=== PATIENT | male | born 1935 | race Caucasian/White ===

== ENCOUNTER 2017-08-09 18:53 | Inpatient (IN) ==
[2017-08-09] MEDS ORDERED: 0.9 % Sodium Chloride 1,000 ML IVC ONE (19:19)
--- NOTE | 2017-08-09 19:27 | Emergency Department Note ---
Disposition Clinical Impression: Dehydration UTI (urinary tract infection) Qualifiers: Urinary tract infection type: site unspecified Hematuria presence: with hematuria Qualified Code(s): N39.0 - Urinary tract infection, site not specified ; R31.9 - Hematuria, unspecified; R31.9 - Hematuria, unspecified Disposition: Admitted As Inpatient Condition: Fair Forms: ED Satisfaction Letter Fall HPI - General Chief Complaint: ED Fall Stated Complaint: frequent falls Time Seen by Provider: 08/09/17 19:00 Source: EMS Mode of arrival: EMS Limitations: age Nursing Notes Reviewed: Yes Vital Signs Reviewed: Yes - History of Present Illness HPI Narrative: 81-year-old male is brought in by [email or web address] for evaluation related to frequent falling. History is difficult to obtain since the family member that is present does not live with him. He states that since Sunday i.e. 2 days ago he has been frequently falling and he has been going over to the home to help pick him up. The patient has no complaints of pain related to falls. He states that he gets dizzy and falls. Patient denies any chest pain, shortness of breath, abdominal pain, nausea vomiting, diarrhea,. He does state that he has problems urinating. He denies any dysuria or hematuria. He also denies any fever or chills. He has not been eating well recently. He has been drinking fluids. Patient is known to have an inoperable brain tumor diagnosed 5 years ago - Related Data Home Medications Medication Instructions Recorded Confirmed Lisinopril [Zestril] 10 mg PO DAILY 05/06/15 08/09/17 Metformin [Glucophage] 1,000 mg PO BIDWM 05/06/15 08/09/17 Omeprazole [PriLOSEC] 20 mg PO DAILY 05/06/15 08/09/17 Pravastatin Sodium [Pravachol] 20 mg PO DAILY 05/06/15 08/09/17 [place] Oil/[place]-3 Fatty Acids 1,000 mg PO DAILY 05/06/15 08/09/17 [Fish Oil 500 mg Softgel] Aspirin [Adult Low Dose Aspirin EC] 81 mg PO DAILY 11/21/15 08/09/17 Previous Rx's Medication Instructions Recorded hydroCHLOROthiazide 12.5 mg PO DAILY #30 tablet 11/21/15 [Hydrochlorothiazide] Simethicone [Gas-X] 80 mg PO TID #90 tab.chew 05/27/16 Allergies Allergy/AdvReac Type Severity Reaction Status Date / Time No Known Allergies Allergy Verified 05/06/15 12:13 Review of Systems: Constitutional: [Negative for fever and chills.] HENT: [Negative for congestion.] Eyes: [Negative for discharge.] Respiratory: [Negative for shortness of breath.] Cardiovascular: [Negative for chest pain.] Gastrointestinal: [Negative for nausea, vomiting, abdominal pain and diarrhea.] Endocrine: [Negative for excessive thirst,urination] Genitourinary: [Negative for dysuria and frequency.] Musculoskeletal: [Negative for myalgias and arthralgias.] Skin: [Negative for rash.] Neurological: see The history of present illness Psychiatric/Behavioral: [Negative for nervous/anxious.] All other systems reviewed and are negative. Fall PMH - Past Medical History Medical history: Reports: COPD, diabetes, GERD, hypertension, kidney stones, other Surgical history: Reports: cholecystectomy Psychiatric history: Reports: no psych history - Social History Smoking Status: Never smoker Alcohol use: Reports: none Drug use: Reports: none Physical Exam Constitutional: Patient is [alert], elderly and cooperative. . The patient is slow to respond, [nontoxic, and does not appear ill]. HENT: Head: Normocephalic and atraumatic. Right Ear: External ear normal. Left Ear: External ear normal. Nose: Nose normal. Mouth/Throat: Oropharynx is clear and mucous membranes show mild dehydration Eyes: Conjunctivae and EOM are normal. Pupils are equal, round, and reactive to light. Right eye exhibits [no] discharge. Left eye exhibits [no] discharge. Neck: Trachea is midline, normal range of motion and [phonation normal]. Neck supple. Cardiovascular: [Regular rhythm], S1 normal, S2 normal, normal heart sounds and intact distal pulses. Exam reveals no gallop and no friction rub. No murmur heard. [Capillary refill is brisk.] [Peripheral pulses are 2+] Pulmonary/Chest: Effort [normal] No stridor. [No] tachypnea. [No] respiratory distress. There are [no] decreased breath sounds. [There no wheezes, no rhonchi , or rales.] Abdominal: Soft. [Bowel sounds are normal]. There exhibits [no] distension and [no] mass. There is no hepatosplenomegaly. There is [no tenderness], [no] CVA tenderness. There is [no rigidity, no rebound, no guarding]. Musculoskeletal: Normal range of motion of uninvolved extremities. There exhibits [no edema]. [ ] Neurological: Patient is alert. Patient displays no atrophy and no tremor. No cranial nerve deficit and exhibits normal muscle tone. He has no gross motor deficits Coordination normal grossly. Skin: Skin is warm and dry. No erythema. No rash noted. Psychiatric: Patient has a normal mood and affect. Course Course Narrative: Patient was discussed with Dr. Newell who agrees to accept him for admission Vital Signs Temperature 98.0 F 08/09/17 18:55 Pulse Rate 100 08/09/17 18:55 Respiratory Rate 16 08/09/17 18:55 Blood Pressure 136/87 08/09/17 18:55 O2 Sat by Pulse Oximetry 94 08/09/17 18:55 Temperature 98.0 F 08/09/17 18:55 Pulse Rate 92 08/09/17 19:57 Respiratory Rate 16 08/09/17 19:57 Blood Pressure 155/101 08/09/17 19:57 O2 Sat by Pulse Oximetry 94 08/09/17 19:57 Oxygen Delivery Oxygen Delivery Room Air Fall - MDM Narrative Medical decision making narrative: Sepsis ( THE RESULT OF PNEUMONIA, INFLUENZA, MENINGITIS,SINUSITIS, ENDOCARDITIS,PYELONEPHRITIS, COLITIS, DIVERTICULITIS,OR WOUND INFECTION), ALCOHOL INTOXICATION, ELEVATED AMNONIA, DRUG TOXICITIES, ELECTROLYTE ABNORMALITIES, HYPO OR HYPERGLYCEMIA, OR UREMIA, PULMONARY EMBOLISM, ACUTE CORONARY SYNDROME, THORACIC AORTIC DISSECTION, PNEUMOTHORAX, PNEUMONIA, PLEURAL EFFUSION, , ESOPHAGEAL RUPTURE, PERICARDIAL TAMPONADE, PULMONARY EDEMA. ANEMIA , GASTROINTESTINAL BLEEDING, RENAL FAILURE, LIVER FAILURE, - Lab Data Lab results reviewed: Yes I reviewed the patient's lab results. Result diagrams: 08/09/17 19:31 08/09/17 19:31 Lab Results 08/09/17 08/09/17 08/09/17 Range/Units 19:31 19:31 19:31 WBC 6.1 (4.3-11.1) K/mcL RBC 4.91 (4.19-5.50) M/mcL Hgb 14.2 (12.9-16.9) g/dL Hct 41.1 (37.5-50.1) % MCV 83.7 (83.0-100.0) fL MCH 28.9 (28.0-33.3) pg MCHC 34.5 (31.6-35.5) g/dL RDW 12.9 (11.5-14.5) % Plt Count 162 (140-400) K/mcL MPV 9.9 (9.4-12.4) fL Immature Gran % 0.8 (0-4) % Seg Neutrophils % 75.7 % Lymphocytes % 12.2 % Monocytes % 11.0 % Eosinophils % 0.0 % Basophils % 0.3 % Neutrophils # 4.6 (1.6-8.9) K/mcL Lymphocytes # 0.7 (0.6-4.6) K/mcL Monocytes # 0.7 (0.0-1.3) K/mcL Eosinophils # 0.0 (0.0-0.6) K/mcL Basophils # 0.0 (0.0-0.2) K/mcL Sodium 126 L (136-145) mEq/L Potassium 4.3 (3.5-4.5) mEq/L Chloride 92 L (98-109) mEq/L Carbon Dioxide 21 (19-29) mEq/L BUN 45 H (8-26) mg/dL Creatinine 2.25 H (0.72-1.25) mg/dL Est GFR ( Amer) 34 L (> 60) Est GFR (Non-Af Amer) 28 L (> 60) BUN/Creatinine Ratio 20 (6-26) Glucose 494 H (70-99) mg/dL Calculated Osmolality 296 (280-300) Lactic Acid 3.0 H (0.5-2.2) mmol/L Calcium 9.3 (8.6-10.8) mg/dL Total Bilirubin 0.8 (0.2-1.2) mg/dL AST 44 H (5-34) Units/L ALT 42 (0-55) Units/L Alkaline Phosphatase 117 (38-126) Units/L Serum Total Protein 7.3 (6.0-8.3) g/dL Albumin 3.2 L (3.5-5.0) g/dL Globulin 4.1 H (2.4-3.5) g/dL Albumin/Globulin Ratio 0.8 L (1.1-2.2) Urine Color (Yellow) Urine Clarity (Clear) Urine pH (5.0-8.0) pH Units Ur Specific [place] (1.010-1.025) Urine Protein (Neg-Trace) mg/dL Urine Glucose (UA) (Normal) mg/dL Urine Ketones (Negative) mg/dL Urine Blood (Negative) Urine Nitrite (Negative) Urine Bilirubin (Negative) Urine Urobilinogen (Normal) mg/dL Ur Leukocyte Esterase (Negative) Urine Microscopic RBC (0-3) per hpf Urine Microscopic WBC (0-3) per hpf Urine Bacteria (None-Few) per hpf Hyaline Casts (None-Few) per lpf Granular Casts (None Seen) per lpf Ur Culture Indicated? (NO) 08/09/17 Range/Units 19:31 WBC (4.3-11.1) K/mcL RBC (4.19-5.50) M/mcL Hgb (12.9-16.9) g/dL Hct (37.5-50.1) % MCV (83.0-100.0) fL MCH (28.0-33.3) pg MCHC (31.6-35.5) g/dL RDW (11.5-14.5) % Plt Count (140-400) K/mcL MPV (9.4-12.4) fL Immature Gran % (0-4) % Seg Neutrophils % % Lymphocytes % % Monocytes % % Eosinophils % % Basophils % % Neutrophils # (1.6-8.9) K/mcL Lymphocytes # (0.6-4.6) K/mcL Monocytes # (0.0-1.3) K/mcL Eosinophils # (0.0-0.6) K/mcL Basophils # (0.0-0.2) K/mcL Sodium (136-145) mEq/L Potassium (3.5-4.5) mEq/L Chloride (98-109) mEq/L Carbon Dioxide (19-29) mEq/L BUN (8-26) mg/dL Creatinine (0.72-1.25) mg/dL Est GFR ( Amer) (> 60) Est GFR (Non-Af Amer) (> 60) BUN/Creatinine Ratio (6-26) Glucose (70-99) mg/dL Calculated Osmolality (280-300) Lactic Acid (0.5-2.2) mmol/L Calcium (8.6-10.8) mg/dL Total Bilirubin (0.2-1.2) mg/dL AST (5-34) Units/L ALT (0-55) Units/L Alkaline Phosphatase (38-126) Units/L Serum Total Protein (6.0-8.3) g/dL Albumin (3.5-5.0) g/dL Globulin (2.4-3.5) g/dL Albumin/Globulin Ratio (1.1-2.2) Urine Color Yellow (Yellow) Urine Clarity Cloudy A (Clear) Urine pH 5.5 (5.0-8.0) pH Units Ur Specific [place] 1.020 (1.010-1.025) Urine Protein 100 H (Neg-Trace) mg/dL Urine Glucose (UA) 500 H (Normal) mg/dL Urine Ketones Negative (Negative) mg/dL Urine Blood Moderate H (Negative) Urine Nitrite Negative (Negative) Urine Bilirubin Negative (Negative) Urine Urobilinogen Normal (Normal) mg/dL Ur Leukocyte Esterase Large H (Negative) Urine Microscopic RBC 5-15 H (0-3) per hpf Urine Microscopic WBC TNTC H (0-3) per hpf Urine Bacteria Many H (None-Few) per hpf Hyaline Casts Few (None-Few) per lpf Granular Casts Few H (None Seen) per lpf Ur Culture Indicated? YES A (NO) - Radiology Data Radiology results reviewed: Yes I reviewed the patient's radiology results. 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 The cystic component appears slightly increased in size. The solid component appears basically unchanged. Otherwise unremarkable CT head for the patient's age.
[2017-08-09 19:37] LABS: Basophils % 0.3 %; Hematocrit 41.1 % (37.5-50.1); Hemoglobin 14.2 g/dL (12.9-16.9); Immature Granulocytes % 0.8 % (0-4); Lymphocytes # 0.7 K/mcL (0.6-4.6); Lymphocytes % 12.2 %; Mean Corpuscular HGB Conc 34.5 g/dL (31.6-35.5); Mean Corpuscular Hemoglobin 28.9 pg (28.0-33.3); Mean Corpuscular Volume 83.7 fL (83.0-100.0); Mean Platelet Volume 9.9 fL (9.4-12.4); Monocytes # 0.7 K/mcL (0.0-1.3); Neutrophils # 4.6 K/mcL (1.6-8.9); Platelet Count 162 K/mcL (140-400); Red Blood Count 4.91 M/mcL (4.19-5.50); Red Cell Distribution Width 12.9 % (11.5-14.5); Segmented Neutrophils % 75.7 %
[2017-08-09 19:39] LABS: Bilirubin,Urine Negative (Negative); Blood,Urine Moderate (Negative); Clarity,Urine Cloudy (Clear); Color,Urine Yellow (Yellow); Glucose,Urine (UA) 500 mg/dL (Normal); Ketones,Urine Negative (Negative); Leukocyte Esterase,Urine Large (Negative); Nitrite,Urine Negative (Negative); PH,Urine 5.5 pH Units (5.0-8.0); Protein,Urine 100 mg/dL (Neg-Trace); Urobilinogen,Urine Normal (Normal)
[2017-08-09 19:48] LABS: Bacteria,Urine Many per hpf (None-Few); Granular Casts,Urine Few per lpf (None Seen); Hyaline Casts,Urine Few per lpf (None-Few); WBC,Urine TNTC per hpf (0-3)
[2017-08-09 20:30] LABS: Albumin 3.2 g/dL (3.5-5.0); Albumin/Globulin Ratio 0.8 (1.1-2.2); Bilirubin,Total 0.8 mg/dL (0.2-1.2); Calcium 9.3 mg/dL (8.6-10.8); Globulin 4.1 g/dL (2.4-3.5); Potassium 4.3 mEq/L (3.5-4.5); Total Protein 7.3 g/dL (6.0-8.3)
[2017-08-09] MEDS ORDERED: Ondansetron 4 MG/2 ML VIAL IVP PRN (21:17)
[2017-08-09] MEDS ORDERED: Naloxone 0.4 MG/ML INJ IVP PRN (21:17)
[2017-08-09] MEDS ORDERED: Acetaminophen 325 MG TABLET PO PRN (21:17)
[2017-08-09] MEDS: Piperacillin/Tazobactam 3.375 GM in 0.9 % Sodium Chloride Mini Bag 100 ML IVPB SCH (22:37)
[2017-08-09] MEDS: 0.9 % Sodium Chloride 1,000 ML IVC SCH (23:30)
[2017-08-09] MEDS ORDERED: *HR* Dextrose 50 % in Water (Syg) 50 ML SYRINGE IVP PRN (23:58)
[2017-08-09] MEDS ORDERED: Dextrose Gel 15 GM PO PRN ×2 (23:58)
[2017-08-09] MEDS ORDERED: D5% in Water 1,000 ML IVC PRN (23:58)
[2017-08-10] MEDS ORDERED: Piperacillin/Tazobactam 3.375 GM in 0.9 % Sodium Chloride Mini Bag 100 ML IVPB SCH
[2017-08-10] MEDS ORDERED: Piperacillin/Tazobactam 3.375 GM/200 ML BAG IVPB SCH
[2017-08-10] MEDS: 0.9 % Sodium Chloride 1,000 ML IVC SCH ×2 (05:40→22:42)
[2017-08-10] MEDS: Piperacillin/Tazobactam 3.375 GM in 0.9 % Sodium Chloride Mini Bag 100 ML IVPB SCH ×3 (06:35→22:44)
--- NOTE | 2017-08-10 06:59 | Internal Med History&Physical ---
Date of Encounter: 08/10/17 Time of Encounter: 06:40 Assessment and Plan (1) UTI (urinary tract infection) Current visit: Yes Status: Acute History of recurring falling episodes and generalized weakness and has a urine consistent with UTI. He could have urosepsis. Blood has been cultured in the ER. He has been started on antibiotics. IV fluids because of poor intake. Repeat lactate is pending. He does not have hypotension or fever or leukocytosis. Qualifiers: Urinary tract infection type: site unspecified Hematuria presence: with hematuria Qualified Code(s): N39.0 - Urinary tract infection, site not specified; R31.9 - Hematuria, unspecified; R31.9 - Hematuria, unspecified (2) Acute kidney injury Current visit: Yes Status: Acute Patient is noted to have acute kidney injury with creatinine 2.28. I suspect this is from some mild dehydration. We will hold his metformin. We will recheck his lactic acid. He has IV fluids going as I suspect this is prerenal. Follow-up creatinine is pending. (3) Dementia Current visit: Yes Status: Chronic He has a chronic history of dementia and MMSE in the chart of . I am not sure exactly what his baseline is. His states that he does not follow commands very well at home. They have to do most of his ADLs and assist with dressing etc. He does not walk well. Qualifiers: Qualified Code(s): F03.90 - Unspecified dementia without behavioral disturbance (4) Generalized weakness Current visit: No Status: Acute He states he is generally weak and falling episodes. Complains of left lower extremity weakness but cannot get him to follow commands to even stand to check his function. I will have PT and OT evaluate him as well. (5) Vestibular schwannoma Current visit: Yes Status: Chronic History of right vestibular schwannoma. No major change overall this seems significant radiographically. (6) Diabetes Current visit: Yes Status: Chronic He has a history of diabetes. His medication list from the office though lists no diabetic medication. His last glycohemoglobin was in the 6% range. Due to his acute kidney injury where going to hold his metformin that was prescribed via the ER. We will use sliding scale for now. Follow-up glycohemoglobin has been ordered. He may indeed not need to be on any medication at this point. Qualifiers: Diabetes mellitus type: type 2 Diabetes mellitus complication status: with unspecified complications Diabetes mellitus senior living insulin use: without senior living use Qualified Code(s): E11.8 - Type 2 diabetes mellitus with unspecified complications (7) HTN (hypertension) Current visit: No Status: Chronic Long-standing history of blood pressure has been good currently. He takes a small amount of hydrochlorothiazide. We will need to watch the hyponatremia though and the acute renal failure. This may need to be changed. Will follow. Qualifiers: Hypertension type: essential hypertension Qualified Code(s): I10 - Essential (primary) hypertension (8) DVT prophylaxis Current visit: Yes Status: Acute Lovenox was initiated from the ER. We will continue as he is not easily ambulatory. Internal Medicine - H&P: HPI Chief complaint: I am here because I cannot walk Admitted From: Emergency Dept Plans for Post Hospital Care: Home History of present illness: Mr. Ramos is a 81 year old male with known history of diabetes, hypertension , carotid stenosis, right vestibular schwannoma and dementia was admitted via the emergency room with a history of repeated falling episodes and weakness. Patient is not a good historian for this and no family available currently. According to the ER physician, patient was brought in via life squad for evaluation of recurring falling episodes. It started occurring over the past 2 days. No related symptoms otherwise. Patient states he usually uses a walker at home and he also states his "left leg is not working well" for the past 3 days. Also states that he is "pooping a lot due to my medications". No matter when I asked when things started to occur, he only said "on Sunday". He also states he is not eating as much since Sunday. In the emergency room he was found to have acute kidney injury with creatinine of 2.25, hyponatremia with sodium of 126, urinalysis consistent with acute urinary tract infection, and redemonstration of his right vestibular schwannoma in which the cystic component appears to be slightly increased, the solid component appears basically unchanged and it does create a mass effect upon the right aspect of the cerebellum. Currently patient denies any chest pain, palpitation, dyspnea, abdominal pain or urinary symptoms. He did state that he is having frequent loose stools. He states he has had pain in his back and his chest from the falling episodes but he is vague about this. Later I was able to obtain more formation via phone from the . She states that he has been going downhill. It is difficult for her to manage him. He does not follow commands very well at all. He is getting to the point where it is too much for her to safely handle at home. He had been in [facility] in the past, but they cannot afford to keep him there. 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 Patient no longer drives. I believe he is taking care of by his and stepson. He states he walks with his walker and cane. (Poor historian and I am not sure of the details) - Family History Mother History Unknown: Yes Living Status: Hx Family Neurologic Disorders: Yes (History of a stroke) Father History Unknown: Yes Living Status: Age at : 63 Internal Medicine - H&P: Meds Pravastatin Sodium [Pravachol] 20 mg PO DAILY 05/06/15 [History] [place] Oil/[place]-3 Fatty Acids [Fish Oil 500 mg Softgel] 1,000 mg PO DAILY 05/06 [History] Aspirin [Adult Low Dose Aspirin EC] 81 mg PO DAILY 11/21/15 [History] hydroCHLOROthiazide [Hydrochlorothiazide] 12.5 mg PO DAILY #30 tablet 11/21/15 [ Rx] Citalopram Hydrobromide [Citalopram HBr] 10 mg PO DAILY 08/10/17 [History] Memantine [Namenda] 5 mg PO DAILY 08/10/17 [History] 3 Allergy/AdvReac Type Severity Reaction Status Date / Time No Known Allergies Allergy Verified 05/06/15 12:13 - Constitutional Constitutional: anorexia (As in history of present illness), falls (As in history of present illness), weakness, no night sweats - EENT Eyes: no diplopia, no loss of vision, no other visual disturbances Ears: no ear discharge, no ear pain Nose, mouth and throat: no neck pain, no sore throat - Cardiovascular Cardiovascular ROS IM: no chest pain, no dyspnea, no dyspnea on exertion, no irregular heart rhythm, no lightheadedness - Respiratory Respiratory: no dyspnea, no dyspnea on exertion, no chest congestion, no pain with cough - Gastrointestinal Gastrointestinal: change in bowel habits (More frequent bowel movements recently ), diarrhea (More frequent bowel movements recently but is not more specific than that), loose stools, no constipation, no hematemesis, no hematochezia, no melena - Genitourinary Genitourinary ROS male: no dysuria, no flank pain, no urinary frequency, no urinary hesitancy, no urinary incontinence - Musculoskeletal Musculoskeletal ROS IM: back pain (Vague history of back pain after his falling episodes), muscle weakness (He states his left leg does not work as well as it should) - Integumentary Integumentary IM: no rash - Neurological Neurological ROS: weakness (He states he is weak, has had recurring falls and left lower extremity does not work as well), no loss of vision - Psychiatric Psychiatric: memory loss (According to his records he does have dementia and fails MMSE) - Constitutional Vitals: Temp Pulse Resp BP Pulse Ox 97.9 F 86 19 148/84 95 08/10/17 04:00 08/10/17 04:00 08/10/17 04:00 08/10/17 04:00 08/10/17 04:00 General appearance: Present: A&O X 2, no acute distress. Absent: answers questions appropriately - Eye Eye exam: Present: PERRL Pupils: Present: PERRL - ENT ENT exam: Present: mucous membranes moist, TM's normal bilaterally. Absent: normal oropharynx (He has a full set of dentures. No oral lesions) - Neck Neck exam general surgery: Absent: lymphadenopathy, tenderness, nuchal rigidity , thyromegaly Additional comments: Faint right carotid bruit - Respiratory Respiratory exam: Present: CTAB. Absent: respiratory distress - Cardiovascular Cardiovascular exam: Present: RRR, +S1, +S2. Absent: systolic murmur - GI/Abdominal GI/Abdominal exam: Present: soft, no peritoneal signs. Absent: guarding, mass, tenderness - Extremities Exam Extremities exam: Present: normal capillary refill. Absent: calf tenderness, pedal edema, tenderness Additional comments: Good dorsalis pedis pulses bilaterally. Both shins have healing abrasions without secondary infection - Back Exam Back exam: Absent: CVA tenderness (L), CVA tenderness (R), tenderness, vertebral tenderness - Neurological Exam Neurological exam: Present: alert, CN II-XII intact (But he is slow to follow commands particularly looking to his left or right following my finger but he is able to do it. He thought it was Sunday not Sunday, he thought it was September not July, he knew it was winter. He knew was coming. He knew his birthday.), strengths equal and symetr throughout (As tested in bed. However he could not follow commands well enough to sit at the edge of the bed. He was slow to follow commands regarding left and right sidedness). Absent: altered, facial droop, speech deficit - Skin Additional comments: He has healing abrasions on both shins that measure about a centimeter in diameter. No secondary infection. Internal Med - H&P Results - Labs CBC & Chem 7: 08/10/17 07:09 08/10/17 07:09 Labs: Labs have been reviewed showing hyponatremia, acute kidney injury and abnormal urinalysis. Urine culture has been set up.
[2017-08-10] MEDS ORDERED: *HR* Enoxaparin 40 MG/0.4 ML SYRINGE SQ SCH (07:00)
[2017-08-10 07:25] LABS: Calcium 8.7 mg/dL (8.6-10.8); Potassium 3.5 mEq/L (3.5-4.5)
[2017-08-10 07:32] LABS: Basophils % 0.3 %; Hematocrit 39.6 % (37.5-50.1); Hemoglobin 13.7 g/dL (12.9-16.9); Immature Granulocytes % 0.6 % (0-4); Lymphocytes # 0.9 K/mcL (0.6-4.6); Lymphocytes % 14.1 %; Mean Corpuscular HGB Conc 34.6 g/dL (31.6-35.5); Mean Corpuscular Volume 83.9 fL (83.0-100.0); Mean Platelet Volume 9.8 fL (9.4-12.4); Monocytes # 0.7 K/mcL (0.0-1.3); Monocytes % 11.7 %; Neutrophils # 4.6 K/mcL (1.6-8.9); Platelet Count 162 K/mcL (140-400); Red Blood Count 4.72 M/mcL (4.19-5.50); Segmented Neutrophils % 73.3 %
[2017-08-10] MEDS ORDERED: *HR* Metformin 500 MG TABLET PO SCH (08:00)
[2017-08-10] MEDS: Aspirin Enteric Coated 81 MG Tablet PO SCH (08:57)
[2017-08-10] MEDS: Simethicone 80 MG TAB.CHEW PO SCH ×2 (08:57→15:11)
[2017-08-10] MEDS: Insulin LISPRO 300 UNITS/3 ML VIAL SQ SCH ×4 (08:58→21:51)
[2017-08-10] MEDS: (Fish Oil 500 Mg Soft) PO SCH (09:04)
--- NOTE | 2017-08-10 19:56 | Event Note ---
Date of Encounter: 08/10/17 Time of Encounter: 19:47 I spoke with the patient's earlier today via phone and she said that he has been getting worse and hard to take care of at home. He does not follow commands and has been falling frequently. I spoke with the stepson and he agrees. When he saw the patient tonight he knew that this was "not like him", he is usually more talkative and he was very quiet and neglectful. Patient's left eyelid does droop a bit. He seems to be ignoring one side and then the other inconsistently. He does not follow commands very well. He may have had a small stroke not seen on CT scan. His change in mentation may be from sepsis, hyponatremia or worsening dementia. Time will tell. I do not think it will change management director at this point.
[2017-08-11 05:31] LABS: Basophils % 0.3 %; Eosinophils % 0.2 %; Hematocrit 33.9 % (37.5-50.1); Immature Granulocytes % 0.7 % (0-4); Lymphocytes # 1.1 K/mcL (0.6-4.6); Lymphocytes % 19.3 %; Mean Corpuscular HGB Conc 34.2 g/dL (31.6-35.5); Mean Corpuscular Hemoglobin 28.8 pg (28.0-33.3); Mean Corpuscular Volume 84.1 fL (83.0-100.0); Mean Platelet Volume 9.8 fL (9.4-12.4); Monocytes # 0.7 K/mcL (0.0-1.3); Monocytes % 12.5 %; Platelet Count 122 K/mcL (140-400); Red Blood Count 4.03 M/mcL (4.19-5.50); Red Cell Distribution Width 13.2 % (11.5-14.5)
[2017-08-11 05:41] LABS: Hemoglobin 11.6 g/dL (12.9-16.9)
[2017-08-11 05:52] LABS: Calcium 7.8 mg/dL (8.6-10.8)
[2017-08-11] MEDS: Piperacillin/Tazobactam 3.375 GM in 0.9 % Sodium Chloride Mini Bag 100 ML IVPB SCH ×2 (06:16→15:29)
[2017-08-11] MEDS: *HR* Enoxaparin 30 MG/0.3 ML SYRINGE SQ SCH (06:19)
[2017-08-11] MEDS: 0.9 % Sodium Chloride 1,000 ML IVC SCH ×3 (06:59→21:58)
[2017-08-11] MEDS: hydroCHLOROthiazide 25 MG TABLET PO SCH (08:19)
[2017-08-11] MEDS: Aspirin Enteric Coated 81 MG Tablet PO SCH (08:20)
[2017-08-11] MEDS: Insulin LISPRO 300 UNITS/3 ML VIAL SQ SCH ×3 (08:21→17:33)
[2017-08-11] MEDS: (Fish Oil 500 Mg Soft) PO SCH (08:24)
--- NOTE | 2017-08-11 09:07 | Internal Med Progress Note ---
Date of Encounter: 08/11/17 Time of Encounter: 09:00 - Assessment and plan (1) Generalized weakness Current Visit: No Status: Acute Assessment and plan: Pursuing OT and PT evals. Considering return to [facility] for longer term therapy. No focal findings. Fall risk. (2) Diabetes Current Visit: Yes Status: Chronic Assessment and plan: A1c from today is pending. Hyperglycemia noted. Would avoid metformin. Qualifiers: Diabetes mellitus type: type 2 Diabetes mellitus complication status: with unspecified complications Diabetes mellitus long lines operator insulin use: without chcf use Qualified Code(s): E11.8 - Type 2 diabetes mellitus with unspecified complications (3) HTN (hypertension) Current Visit: No Status: Chronic Assessment and plan: At goal. BPs a little low, should improve with hydration and treatment of infection. Qualifiers: Hypertension type: essential hypertension Qualified Code(s): I10 - Essential (primary) hypertension (4) COPD (chronic obstructive pulmonary disease) Current Visit: No Status: Chronic Assessment and plan: No current sx or significant exam findings. 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 Culture results are still pending. Qualifiers: Urinary tract infection type: site unspecified Hematuria presence: with hematuria Qualified Code(s): N39.0 - Urinary tract infection, site not specified; R31.9 - Hematuria, unspecified; R31.9 - Hematuria, unspecified (6) Acute kidney injury Current Visit: Yes Status: Acute Assessment and plan: Creatinine stable at 1.89 from 1.86. (7) Dementia Current Visit: Yes Status: Chronic Assessment and plan: I have not seen him beofre, but he seems better to me. Sodium improved from 127 to 131. Qualifiers: Qualified Code(s): F03.90 - Unspecified dementia without behavioral disturbance (8) Hypokalemia Current Visit: Yes Status: Acute Assessment and plan: 3.0 from 3.5. Will replace. (9) Hyponatremia Current Visit: Yes Status: Acute - Time Spent With Patient Greater than 35 minutes - Subjective Interval history: Patient has no complaints. Denies SOB, chest pain. He reports occ mild hypogastric discomfort. - Constitutional Vitals: Afebrile. BP 93/52-106/53. O2 sat 92-98% on RA. Temp Pulse Resp BP Pulse Ox 98.6 F 66 14 99/61 98 08/11/17 07:21 08/11/17 07:21 08/11/17 07:21 08/11/17 07:21 08/11/17 07:21 General appearance: Present: cooperative, A&O X 3 (Oriented to person and place , gives day as "Elvira Mari[place]". ), pleasant, no acute distress. Absent: answers questions appropriately (He tells me that Dr. Newell is out fishing. ) - Respiratory Respiratory exam: Present: rales (mild but definite rales at bases bilaterally) . Absent: accessory muscle use, rhonchi, wheezes - Cardiovascular Cardiovascular exam: Present: RRR, +S1, +S2. Absent: diastolic murmur, gallop, rubs, systolic murmur - GI/Abdominal GI/Abdominal exam: Present: normal bowel sounds, soft, no peritoneal signs. Absent: distended, tenderness - Extremities Exam Extremities exam: Present: warm. Absent: calf tenderness, cyanotic, pedal edema - Other Additional findings: Moves all extremities, no facial asymmetry. Internal Medicine: Result - Labs CBC & Chem 7: 08/11/17 05:00 08/11/17 05:00 Labs: Short CBC 08/11/17 Range/Units 05:00 WBC 5.9 (4.3-11.1) K/mcL Hgb 11.6 L D (12.9-16.9) g/dL Hct 33.9 L (37.5-50.1) % Plt Count 122 L (140-400) K/mcL Neutrophils # 4.0 (1.6-8.9) K/mcL BMP 08/11/17 05:00 Sodium 131 L Potassium 3.0 L Chloride 101 Carbon Dioxide 20 BUN 40 H Creatinine 1.89 H Glucose 165 H Calcium 7.8 L Consult Discharge Plan - Plan Referrals: Lotus Cordero, MANAGER [employer]PORATE [employer]ATEGY [Primary Care Provider] -
[2017-08-11 18:27] LABS: Estimated Average Glucose > 355 mg/dl; Hemoglobin A1C >= 14.1 %
[2017-08-12] MEDS: Insulin LISPRO 300 UNITS/3 ML VIAL SQ SCH ×5 (00:09→20:32)
[2017-08-12] MEDS: Piperacillin/Tazobactam 3.375 GM in 0.9 % Sodium Chloride Mini Bag 100 ML IVPB SCH ×3 (04:32→20:25)
[2017-08-12] MEDS: *HR* Enoxaparin 30 MG/0.3 ML SYRINGE SQ SCH (05:40)
[2017-08-12] MEDS: Aspirin Enteric Coated 81 MG Tablet PO SCH (08:50)
[2017-08-12] MEDS: hydroCHLOROthiazide 25 MG TABLET PO SCH (08:50)
[2017-08-12] MEDS: (Fish Oil 500 Mg Soft) PO SCH (12:43)
--- NOTE | 2017-08-12 16:55 | Internal Med Progress Note ---
Date of Encounter: 08/12/17 Time of Encounter: 07:30 - Assessment and plan (1) Generalized weakness Current Visit: No Status: Acute Assessment and plan: His stepson and agreed that these doing better overall. Continue with therapy as tolerated. (2) Diabetes Current Visit: Yes Status: Chronic Assessment and plan: [id number]-[id number] glucose is 208. A1c is greater than 14. We should avoid metformin because of his chronic kidney disease. He has no known allergies. I will start him on low dose glipizide. Qualifiers: Diabetes mellitus type: type 2 Diabetes mellitus complication status: with unspecified complications Diabetes mellitus superintendent marine oil terminal insulin use: without superintendent marine oil terminal use Qualified Code(s): E11.8 - Type 2 diabetes mellitus with unspecified complications (3) HTN (hypertension) Current Visit: No Status: Chronic Assessment and plan: at goal BP. Qualifiers: Hypertension type: essential hypertension Qualified Code(s): I10 - Essential (primary) hypertension (4) COPD (chronic obstructive pulmonary disease) Current Visit: No Status: Chronic Assessment and plan: Symptoms and exam are stable. 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 Elevated lactate suggested sepsis, continue Zosyn for now. Qualifiers: Urinary tract infection type: site unspecified Hematuria presence: with hematuria Qualified Code(s): N39.0 - Urinary tract infection, site not specified; R31.9 - Hematuria, unspecified; R31.9 - Hematuria, unspecified (6) Acute kidney injury Current Visit: Yes Status: Acute Assessment and plan: Will check AM labs. He has maintained a good urine output and is eating well. (7) Dementia Current Visit: Yes Status: Chronic Assessment and plan: His mentation is getting close to baseline per family. Qualifiers: Qualified Code(s): F03.90 - Unspecified dementia without behavioral disturbance (8) Hypokalemia Current Visit: Yes Status: Acute Assessment and plan: We will recheck his labs. (9) Hyponatremia Current Visit: Yes Status: Acute Assessment and plan: Improved. We will recheck his labs. - Time Spent With Patient Greater than 35 minutes - Subjective Interval history: The patient has no specific complaints. He denies shortness of breath, chest pain or abdominal pain. His nurse says that his diarrhea is much improved from his gone from wateriness to now soft stool pretty well formed. He denies any problems he tells me spontaneously "it's [place]". - Constitutional Vitals: I reviewed multiple sets of vitals today and they look fine. Temp Pulse Resp BP Pulse Ox 98.6 F 59 16 137/70 98 08/12/17 16:30 08/12/17 16:30 08/12/17 16:30 08/12/17 16:30 08/12/17 16:30 General appearance: Present: cooperative, A&O X 3 (Oriented to person and place , gives day as "[place]". ), pleasant, no acute distress. Absent: answers questions appropriately (He tells me that Dr. Newell is out fishing. ) - Respiratory Respiratory exam: Present: CTAB. Absent: accessory muscle use, rales, respiratory distress, rhonchi, wheezes - Cardiovascular Cardiovascular exam: Present: RRR, +S1, +S2. Absent: diastolic murmur, gallop, rubs, systolic murmur - GI/Abdominal GI/Abdominal exam: Present: normal bowel sounds, soft, no peritoneal signs. Absent: distended, rebound, rigid, tenderness Additional comments: [place] sounds are active but pitch is normal. - Extremities Exam Extremities exam: Present: warm. Absent: calf tenderness, cyanotic, pedal edema - Psychiatric Psychiatric exam: Present: normal affect, normal mood. Absent: agitated Internal Medicine: Result - Labs CBC & Chem 7: 08/11/17 05:00 08/11/17 05:00 Consult Discharge Plan - Plan Referrals: Lotus Cordero TRAWL NET MAKER [Primary Care Provider] -
[2017-08-12] MEDS: 0.9 % Sodium Chloride 1,000 ML IVC SCH (18:59)
[2017-08-13] MEDS: Piperacillin/Tazobactam 3.375 GM in 0.9 % Sodium Chloride Mini Bag 100 ML IVPB SCH (04:05)
[2017-08-13 05:24] LABS: Hematocrit 34.2 % (37.5-50.1); Hemoglobin 11.7 g/dL (12.9-16.9); Mean Corpuscular HGB Conc 34.2 g/dL (31.6-35.5); Mean Corpuscular Hemoglobin 28.9 pg (28.0-33.3); Mean Corpuscular Volume 84.4 fL (83.0-100.0); Mean Platelet Volume 10.2 fL (9.4-12.4); Platelet Count 157 K/mcL (140-400); Red Blood Count 4.05 M/mcL (4.19-5.50); Red Cell Distribution Width 13.3 % (11.5-14.5)
[2017-08-13 06:05] LABS: BUN/Creatinine Ratio 13 (6-26); Blood Urea Nitrogen 16 mg/dL (8-26); Carbon Dioxide 19 mEq/L (19-29); Chloride 105 mEq/L (98-109); Glucose 238 mg/dL (70-99); Osmolality,Calculated 287 (280-300); Potassium 3.7 mEq/L (3.5-4.5); Sodium 134 mEq/L (136-145); eGFR For African Americans > 60 (> 60); eGFR For Non-African Americans 55 (> 60)
[2017-08-13 06:06] LABS: Calcium 8.4 mg/dL (8.6-10.8)
[2017-08-13] MEDS: *HR* Enoxaparin 30 MG/0.3 ML SYRINGE SQ SCH (06:31)
[2017-08-13] MEDS: *HR* GlipiZIDE 5 MG TABLET PO SCH (07:54)
[2017-08-13] MEDS: Aspirin Enteric Coated 81 MG Tablet PO SCH (07:55)
[2017-08-13] MEDS: hydroCHLOROthiazide 25 MG TABLET PO SCH (07:55)
[2017-08-13] MEDS: (Fish Oil 500 Mg Soft) PO SCH (07:56)
[2017-08-13] MEDS: Insulin LISPRO 300 UNITS/3 ML VIAL SQ SCH ×4 (08:05→21:11)
--- NOTE | 2017-08-13 11:41 | Internal Med Progress Note ---
Date of Encounter: 08/13/17 Time of Encounter: 11:25 - Assessment and plan (1) Generalized weakness Current Visit: No Status: Acute Assessment and plan: Overall much improved. Plan is to discharge tomorrow likely to [facility] for ongoing therapy with eventual goal of discharge. Patient is agreeable to this plan as are the stepson and who are here today. (2) Diabetes Current Visit: Yes Status: Chronic Assessment and plan: Blood sugars are elevated as above. Doing sliding scale coverage and I did start him on oral glipizide 2.5 mg once daily. I think it's reasonable to start oral diabetes treatment plan for discharge tomorrow to see how he tolerates it while in the hospital setting. Qualifiers: Diabetes mellitus type: type 2 Diabetes mellitus complication status: with unspecified complications Diabetes mellitus residential insulin use: without grievance and appeals coordinator use Qualified Code(s): E11.8 - Type 2 diabetes mellitus with unspecified complications (3) HTN (hypertension) Current Visit: No Status: Chronic Assessment and plan: overall at goal. Qualifiers: Hypertension type: essential hypertension Qualified Code(s): I10 - Essential (primary) hypertension (4) COPD (chronic obstructive pulmonary disease) Current Visit: No Status: Chronic Assessment and plan: Symptoms and exam are well controlled. 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 I will stop his antibiotic today. Qualifiers: Urinary tract infection type: site unspecified Hematuria presence: with hematuria Qualified Code(s): N39.0 - Urinary tract infection, site not specified; R31.9 - Hematuria, unspecified; R31.9 - Hematuria, unspecified (6) Acute kidney injury Current Visit: Yes Status: Acute Assessment and plan: Marked improvement as per the labs above. Calcium improved from 7.8-8.4. His calcium levels have been pretty variable here in the hospital, I'm not sure if there is any clinical significance to that. (7) Dementia Current Visit: Yes Status: Chronic Assessment and plan: Back to baseline mentation with treatment of hydration and antibiotics. Qualifiers: Qualified Code(s): F03.90 - Unspecified dementia without behavioral disturbance (8) Hypokalemia Current Visit: Yes Status: Acute Assessment and plan: Resolved. (9) Hyponatremia Current Visit: Yes Status: Acute Assessment and plan: Resolved as above. - Time Spent With Patient Greater than 35 minutes - Subjective Interval history: I saw and examined the patient. He has no specific complaints. He denies chest pain, shortness of breath or abdominal pain. I spoke with the stepson who tells me he feels he is back to his baseline and doing pretty well. The patient, the stepson and I are in agreement to follow the plan for discharge to [facility] tomorrow for further therapy. - Constitutional Vitals: He's had 2 blood pressures at goal today, one was a little elevated at 160/70. Heart rates in the range of 55-59. O2 sats are 96-97% on room air. Temp Pulse Resp BP Pulse Ox 97.5 F L 55 16 137/69 97 08/13/17 08:00 08/13/17 08:00 08/13/17 04:28 08/13/17 08:00 08/13/17 08:00 General appearance: Present: cooperative, A&O X 3 (Oriented to person and place , gives day as "[place]". ), pleasant (He is bright and alert and pleasant. He appears overall better than when I first saw him a few days ago.), no acute distress. Absent: answers questions appropriately (He tells me that Dr. Newell is out fishing. ) - Respiratory Respiratory exam: Present: CTAB. Absent: accessory muscle use, rales, rhonchi, wheezes - Cardiovascular Cardiovascular exam: Present: RRR, +S1, +S2. Absent: diastolic murmur, gallop, rubs, systolic murmur - GI/Abdominal GI/Abdominal exam: Present: normal bowel sounds, soft, no peritoneal signs. Absent: distended, tenderness - Extremities Exam Extremities exam: Present: warm. Absent: calf tenderness, cyanotic, pedal edema (No pretibial edema.) Internal Medicine: Result - Labs CBC & Chem 7: 08/13/17 05:00 08/13/17 05:00 Labs: 11.7. Sodium is improved from 1:30 to 1-134. Potassium better at 3.0-3.7. Renal function much improved with BUN dropping from 40-16 and creat dropping from 1.89 -1.25. 08/13/17 Range/Units 05:00 WBC 5.9 (4.3-11.1) K/mcL Hgb 11.7 L (12.9-16.9) g/dL Hct 34.2 L (37.5-50.1) % Plt Count 157 (140-400) K/mcL BMP 08/13/17 05:00 Sodium 134 L Potassium 3.7 Chloride 105 Carbon Dioxide 19 BUN 16 D Creatinine 1.25 Glucose 238 H Calcium 8.4 L Consult Discharge Plan - Plan Referrals: Lotus Cordero, RESIDENTIAL DESIGNER [Primary Care Provider] -
[2017-08-13] MEDS: 0.9 % Sodium Chloride 1,000 ML IVC SCH (17:22)
[2017-08-14] MEDS: *HR* Enoxaparin 30 MG/0.3 ML SYRINGE SQ SCH (05:52)
[2017-08-14] MEDS: Insulin LISPRO 300 UNITS/3 ML VIAL SQ SCH (07:43)
[2017-08-14] MEDS: (Fish Oil 500 Mg Soft) PO SCH (07:45)
[2017-08-14] MEDS: hydroCHLOROthiazide 25 MG TABLET PO SCH (07:45)
[2017-08-14] MEDS: Aspirin Enteric Coated 81 MG Tablet PO SCH (07:45)
[2017-08-14] MEDS: *HR* GlipiZIDE 5 MG TABLET PO SCH (07:46)
[2017-08-14] MEDS ORDERED: Mag Hydrox/Al Hydrox/Simeth 30 ML UDC PO PRN (07:51)
[2017-08-14 11:21] VITALS: BP 153/72
--- NOTE | 2017-08-14 12:00 | Physician Discharge Referral ---
ExtendedCare Referral Info Transfer To: [facility]Care Provider in Charge after Transfer: Other () Institutional Level of Care: Skilled - Diagnosis (1) UTI (urinary tract infection) Status: Acute (2) Acute kidney injury Status: Acute (3) Dementia Status: Chronic (4) Generalized weakness Status: Acute (5) Vestibular schwannoma Status: Chronic (6) Diabetes Status: Chronic (7) HTN (hypertension) Status: Chronic (8) DVT prophylaxis Status: Acute - Transfer Medications Home Medications: Pravastatin Sodium [Pravachol] 20 mg PO DAILY 05/06/15 [History] [place] Oil/Warren-3 Fatty Acids [Fish Oil 500 mg Softgel] 1,000 mg PO DAILY 05/06 [History] Aspirin [Adult Low Dose Aspirin EC] 81 mg PO DAILY 11/21/15 [History] hydroCHLOROthiazide [Hydrochlorothiazide] 12.5 mg PO DAILY #30 tablet 11/21/15 [ Rx] Memantine [Namenda] 5 mg PO DAILY 08/10/17 [History] Acetaminophen [Tylenol] 650 mg PO Q6HR PRN tablet 08/14/17 [Rx] Citalopram Hydrobromide [Citalopram HBr] 5 mg PO DAILY #0 08/14/17 [Rx] Mag Hydrox/Al Hydrox/Simeth [Maalox] 30 ml PO Q2H PRN udc 08/14/17 [Rx] Potassium Chloride 20 meq PO DAILY tab.er.prt 08/14/17 [Rx] metFORMIN [Glucophage] 500 mg PO BIDWM tablet 08/14/17 [Rx] Allergies/Adverse Reactions: 3 Allergy/AdvReac Type Severity Reaction Status Date / Time No Known Allergies Allergy Verified 05/06/15 12:13 - Respiratory Orders Smoking Cessation: Smoking cessation has been advised. For more information, call the [place] Tobacco Quit Line at 4-871-JBQW-NOW. - Ancillary Orders May use pressure relief devices daily prn, May go on ROWENA w/family/respon constitution party w /meds at nurse discretion PRN - Advance Directives Code Status: DNR-Arrest/Don't Intubate - Mobility Orders Ambulate - Rehabiliation Orders Rehab Potential: Good Rehab Orders: ROM Exercises, Evaluation for Physical Therapy, Evaluation for Occupational Therapy - Treatments Skin tear care topically daily PRN per policy - Diet Orders No Concentrated Sweets CERTIFICATION: I certify that the transfer of the above named patient to an Extended Care Facility is necessary for the continuing treatment of the diagnosis listed. The above information is true and accurate reflection of patient's current condition. Confidential - Redisclosure prohibited without a patient's written consent.
--- NOTE | 2017-08-14 12:06 | Discharge Summary ---
Date of Encounter: 08/14/17 Time of Encounter: 12:03 - Discharge Diagnosis (1) Suspected cerebrovascular accident (CVA) Priority: Primary Status: Acute Comments: Patient was admitted initially with history of recurring falling episodes, generalized weakness, any urine appeared to be infected. He was placed on IV antibiotics and symptoms improved. However, on retrospect I suspect he may have had a CVA. He has some residual left upper eyelid ptosis and he had gait abnormality and complaints of left lower extremity weakness when he was admitted. Those seem to be resolved except for the left eye lid ptosis. He is now more talkative, socially more engaged, increasing his ADLs etc. He was already started on aspirin. His initial CT scan of the head did not show an acute event, but clinically it sounds like he may have had a CVA with left hemiplegia changes. Also, what has been confusing, is some gaze palsy issues. 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 His office chart reveals that he has a history of CVA and worked up in the past. Whether he had a new stroke or not, it would not change our current treatment plan except for starting aspirin. He improved with therapies and needs ongoing care home care and therapies. The urine culture came back as no significant growth. A follow-up urine is pending to see if it showed improvement and microscopy. (2) UTI (urinary tract infection) Priority: Secondary Status: Acute Comments: His urine on admission appeared to be infected. He was treated as if he had a urinary tract infection. Zosyn was started in the ER. Urine culture surprising came back as no significant growth. Follow-up UA has been ordered and is still pending to see if it has changed. We still treated him as if he had UTI and possible urosepsis. Blood cultures were negative. Qualifiers: Urinary tract infection type: site unspecified Hematuria presence: with hematuria Qualified Code(s): N39.0 - Urinary tract infection, site not specified; R31.9 - Hematuria, unspecified; R31.9 - Hematuria, unspecified (3) Acute kidney injury Priority: Secondary Status: Acute Comments: On admission he had acute kidney injury with a creatinine 1.8 and by discharge his creatinine improved 1.2 with IV fluids. He had hyponatremia is improved with a sodium 134. He had hypokalemia now has a normal potassium. (4) Dementia Priority: Secondary Status: Chronic Comments: Chronically has mild dementia. On admission he was not very talkative and did not know the day of the week etc. Now he has more spontaneous speech and more of his usual personality. I did not do a full Mini-Mental status exam at time of discharge. He does have lost a history of mild dementia and takes memantine Qualifiers: Qualified Code(s): F03.90 - Unspecified dementia without behavioral disturbance (5) Generalized weakness Priority: Secondary Status: Acute Comments: On admission he had generalized weakness we felt he may have urosepsis. He may have actually had a CVA. In any case he is now improved, cooperative with his therapies, increase ADLs and ambulation. I also recommended ongoing PT and OT and care home care. (6) Vestibular schwannoma Priority: Secondary Status: Chronic Comments: Chronic history of vestibular schwannoma. CT scan showed increase in the cystic portion but not in the solid portion of this lesion. Did not feel that it impacted his admission or his hospital care. (7) Diabetes Priority: Secondary Status: Chronic Comments: When patient was admitted to the hospital he was not on hypoglycemic medication. His last glycohemoglobin about a year ago was 6.4%. I presume his medications were discontinued for fear of having hypoglycemia. However, his blood sugars during this hospital stay were in the 200s and 300s. Initially glipizide was started to control blood sugars. When the patient's renal function improved back to a GFR over 60 I discontinued the glipizide and started metformin again to help avoid hypoglycemic reactions. His new glycohemoglobin was over 14% Qualifiers: Diabetes mellitus type: type 2 Diabetes mellitus complication status: with kidney complications Diabetes mellitus complication detail: with nephropathy Diabetes mellitus termite helper insulin use: without termite helper use Qualified Code(s): E11.21 - Type 2 diabetes mellitus with diabetic nephropathy (8) HTN (hypertension) Priority: Secondary Status: Chronic Comments: Patient is a history of long-standing hypertension. We did not change his hypertensive medications. At discharge his pressures were ranging 140s to 150s systolic. Will need to be evaluated further particularly after he is more ambulatory. Qualifiers: Hypertension type: essential hypertension Qualified Code(s): I10 - Essential (primary) hypertension (9) DVT prophylaxis Priority: Secondary Status: Acute Comments: He received Lovenox for DVT prophylaxis. No palpitations with this. He is ambulatory and should not need DVT prophylaxis at the half-way as long as he is getting frequent ambulation. - Discharge Medications Home Medications: Pravastatin Sodium [Pravachol] 20 mg PO DAILY 05/06/15 [History] [place] Oil/Woolwine-3 Fatty Acids [Fish Oil 500 mg Softgel] 1,000 mg PO DAILY 05/06 [History] Aspirin [Adult Low Dose Aspirin EC] 81 mg PO DAILY 11/21/15 [History] hydroCHLOROthiazide [Hydrochlorothiazide] 12.5 mg PO DAILY #30 tablet 11/21/15 [ Rx] Memantine [Namenda] 5 mg PO DAILY 08/10/17 [History] Acetaminophen [Tylenol] 650 mg PO Q6HR PRN tablet 08/14/17 [Rx] Citalopram Hydrobromide [Citalopram HBr] 5 mg PO DAILY #0 08/14/17 [Rx] Mag Hydrox/Al Hydrox/Simeth [Maalox] 30 ml PO Q2H PRN udc 08/14/17 [Rx] Potassium Chloride 20 meq PO DAILY tab.er.prt 08/14/17 [Rx] metFORMIN [Glucophage] 500 mg PO BIDWM tablet 08/14/17 [Rx] Allergies/Adverse Reactions: 3 Allergy/AdvReac Type Severity Reaction Status Date / Time No Known Allergies Allergy Verified 05/06/15 12:13 Procedures/tests Complete & Pending: Laboratory Results - last 48 hr 08/12/17 08/12/17 08/12/17 07:12 11:31 16:12 WBC RBC Hgb Hct MCV MCH MCHC RDW Plt Count MPV Sodium Potassium Chloride Carbon Dioxide BUN Creatinine Est GFR ( Amer) Est GFR (Non-Af Amer) BUN/Creatinine Ratio Glucose POC Glucose 212 H 374 H 208 H Calculated Osmolality Calcium 08/12/17 08/13/17 08/13/17 20:26 05:00 05:00 WBC 5.9 RBC 4.05 L Hgb 11.7 L Hct 34.2 L MCV 84.4 MCH 28.9 MCHC 34.2 RDW 13.3 Plt Count 157 MPV 10.2 Sodium 134 L Potassium 3.7 Chloride 105 Carbon Dioxide 19 BUN 16 D Creatinine 1.25 Est GFR ( Amer) > 60 Est GFR (Non-Af Amer) 55 L BUN/Creatinine Ratio 13 Glucose 238 H POC Glucose 150 H Calculated Osmolality 287 Calcium 8.4 L 08/13/17 08/13/17 08/13/17 07:59 11:38 16:51 WBC RBC Hgb Hct MCV MCH MCHC RDW Plt Count MPV Sodium Potassium Chloride Carbon Dioxide BUN Creatinine Est GFR ( Amer) Est GFR (Non-Af Amer) BUN/Creatinine Ratio Glucose POC Glucose 247 H 322 H 278 H Calculated Osmolality Calcium 08/13/17 08/14/17 08/14/17 20:03 07:16 11:13 WBC RBC Hgb Hct MCV MCH MCHC RDW Plt Count MPV Sodium Potassium Chloride Carbon Dioxide BUN Creatinine Est GFR ( Amer) Est GFR (Non-Af Amer) BUN/Creatinine Ratio Glucose POC Glucose 194 H 204 H 214 H Calculated Osmolality Calcium Date of admission: 08/10/17 12:53 Primary care physician: Lotus Cordero CNP Discharging clinician: Deion Newell Anticipated date of discharge: 08/14/17 - Patient Status Disposition: Transfer SNF Condition: Good Functional capacity at discharge: uses cane/walker Overall status at discharge: patient is progressing back to baseline - Discharge Instructions Follow Up With: Lotus Cordero CNP [Primary Care Provider] - - Diet and Activity Activity: ambulate only with your walker, as per physical therapy Diet: diabetic diet, low salt diet Interval History: Today patient has no new complaints. He states that he does not feel weak any longer. He states he is ambulating better. Denies any chest pain, palpitations , GI or symptoms. In the middle of the night he had some indigestion. Liquid antacid has been ordered. On his vision testing he told me that he is chronically blind in the right eye because of a "stroke". We did not have that history previously. His stepson feels that he is showing improvement except for the left upper eyelid ptosis. Patient is eager to go to the half-way for ongoing care. Hospital course: Mr. Ramos is a 81 year old male who is having generalized weakness, recurring falling episodes, was brought to the emergency room. There he was found to have a urine consistent with UTI, acute kidney injury with creatinine elevated 2.28, worsening of his mentation/dementia and elevated glucose. It is felt that he had a urinary tract infection and possible urinary sepsis. He was placed on Zosyn and one dose of gentamicin in the ER. Surprisingly, his urine culture showed no growth. He did improve clinically with the antibiotic and IV fluids. On further questioning, particularly after patient was more appropriate, it appears he has new onset and residual left upper eyelid ptosis. He does have chronic right eye blindness from he says is a "stroke" and sometimes does not follow well with the left eye. His gait has improved dramatically compared to baseline. Likely he may have had a CVA. He was started on aspirin. Given his current situation it did not change his particular management at this time. He remains a DNR CCA, no intubation or CPR or defibrillation. - Time Spent with Patient Total time spent providing and/or coordinating discharge services: - Constitutional Vitals: Temp Pulse Resp BP Pulse Ox 96.4 F L 59 16 153/72 99 08/14/17 11:17 08/14/17 11:17 08/14/17 11:17 08/14/17 11:17 08/14/17 11:17 General appearance: Present: cooperative, A&O X 3, pleasant, no acute distress - Eye Additional comments: Right eye is blind and he cannot count my fingers 1 foot in front of his face. Left side seems to have decent peripheral vision but does not follow my finger well on field testing - Respiratory Respiratory exam: Present: CTAB - Cardiovascular Cardiovascular exam: Present: RRR, +S1, +S2. Absent: systolic murmur - GI/Abdominal GI/Abdominal exam: Present: soft. Absent: tenderness - Extremities Exam Extremities exam: Absent: calf tenderness, tenderness - Neurological Exam Additional comments: Blind in the right eye. Left upper eyelid ptosis and only partial ability to raise left eyebrow compared to right. Otherwise no obvious focal muscle deficits. - Skin Additional comments: He has healing scabbed areas on each walker where he had fallen at home - VTE Documentation of Mechanical Device: Graduated compression elastic hosiery
[2017-08-14 13:05] LABS: Bilirubin,Urine Negative (Negative); Blood,Urine Negative (Negative); Clarity,Urine Clear (Clear); Color,Urine Yellow (Yellow); Glucose,Urine (UA) 500 mg/dL (Normal); Ketones,Urine Negative (Negative); Leukocyte Esterase,Urine Small (Negative); Nitrite,Urine Negative (Negative); PH,Urine 5.5 pH Units (5.0-8.0); Protein,Urine Negative (Neg-Trace); Specific Gravity,Urine 1.015 (1.010-1.025); Urobilinogen,Urine Normal (Normal)
[2017-08-14 13:15] LABS: Squamous Epithelial Cell,Urine Few per lpf (None-Few); WBC,Urine 30-50 per hpf (0-3)
[2017-08-14 13:16] LABS: Bacteria,Urine Moderate per hpf (None-Few)
[2017-08-14] MEDS ORDERED: *HR* Metformin 500 MG TABLET PO SCH (17:00)
== END 2017-08-14 13:55 | DRG 871 ==
LOC: EMEROOGRE 18:53 → INPGRE 18:53
PROVIDERS: ADMIT Family Medicine; ATTEND Family Medicine